=== PATIENT | male | born 1965 | race Caucasian/White ===

== ENCOUNTER → 2016-05-04 | Outpatient (CLI) | payer OTHER ==
[~2016-05-04] MED LIST: VENTOLIN H0.09 MG/AC IH; VIBRAMYCIN100 MG PO
[2016-05-04 14:58] LABS: HEMATOCRIT 40.8 % (42.0-52.0); HEMOGLOBIN 13.4 g/dl (14.0-18.0); MEAN CELL VOLUME 93.2 fl (80.0-94.0); MEAN CORPUSCULAR HGB 30.6 pg (27.0-31.0); MEAN CORPUSCULAR HGB CONC 32.8 g/dl (33.0-37.0); MEAN PLATELET VOLUME 9.1 fl (9.6-12.3); PLATELET COUNT AUTOMATED 205 10*3/uL (130-400); RED BLOOD COUNT 4.38 10*6/uL (4.50-5.90); RED CELL DISTRI WIDTH 13.2 % (0-14.5); WHITE BLOOD COUNT 5.1 10*3/uL (4.8-10.8)
[2016-05-04 15:26] LABS: IRON 75 ug/dL (65-175); IRON SATURATION 26 %; UIBC 209 ug/dL (110-410)
[2016-05-04 15:43] LABS: BASOPHIL # 0.1 10*3/uL (0-0.1); BASOPHILS 1 % (0-1); EOSINOPHIL # 0.2 10*3/uL (0-0.4); EOSINOPHILS 4 % (1-4); LYMPHOCYTE # 1.4 10*3/uL (1.3-4.4); MONOCYTE # 0.2 10*3/uL (0.1-1.0); NEUTROPHIL # 3.3 10*3/uL (2.3-7.9); NEUTROPHILS 64 % (47-73); PLATELET SUFFICIENCY NORMAL (NORMAL); TOTAL CELLS COUNTED 100 #CELLS
== END | disposition home or self-care (01) ==
LOC: LAB 14:37
PROVIDERS: Family Medicine
DX: D64.9 Anemia, unspecified (principal)

== ENCOUNTER → 2016-06-07 | Day surgery (SDC) | payer OTHER ==
[~2016-06-07] VITALS: Ht 175.2 cm; Wt 76.7 kg
[~2016-06-07] MED LIST changes: +ALL DAY ALLERGY10 MG PO; +ALPHA LIPOIC A300 MG PO; +AMITRIPTYLINE50 MG PO; +LAMOTRIGINE150 MG PO; +LEVETIRACETAM500 MG PO; +NEXIUM40 MG PO; +PAROXETINE HCL40 MG PO; +PAXIL20 M1 PO; +VITAMIN B121000 MC1 PO
--- NOTE | ~2016-06-07 | PROC NOTE ---
[place], [place] PROCEDURE NOTE NAME: DAREK JACQUES UNIT #: [id number] ROOM: DOCTOR: ALEX WALLACE MD BIRTHDATE: [birth year] DOS: 06/07/2016 PREOPERATIVE DIAGNOSES: History of gastroesophageal reflux disease, screening examination. POSTOPERATIVE DIAGNOSES: Gastritis, gastroesophageal reflux disease, normal colon. PROCEDURE: Esophagogastroduodenoscopy with screening colonoscopy. ENDOSCOPIST: Alex Wallace MD. INTERNET WEBMASTER: PGY1. ANESTHESIA: MAC. INDICATIONS: This is a 50-year-old gentleman who is here for a screening colonoscopy. He also has a history of gastritis and GERD, for which he desires an esophagogastroduodenoscopy, but decided to proceed with these procedures. The procedures and its complications were explained to the patient in detail preoperatively. Complications that were discussed included but were not limited to bleeding, missed lesions, colon and gastric perforation. He agreed to proceed. DESCRIPTION OF PROCEDURE: After identifying the patient, the patient was brought to the endoscopy suite and placed in the left lateral position. It was decided to proceed with the EGD first. Bite block was placed and sedation was administered by the Anesthesia team. An adult gastroscope was now lubricated and inserted into the mouth and advanced into the pharynx, esophagus, stomach, and the first 2 parts of the duodenum. There was found to be mild gastritis, but no active bleeding or ulceration. These findings were confirmed on retroflexion of the scope as well in the stomach. The duodenum was normal. On withdrawal, the esophagus was visualized and there was found to be a small hiatal hernia without any bleeding or ulceration and any inflammation. The scope was withdrawn. At this point, a colonoscopy was performed. A digital rectal exam was performed for this, which was within normal limits. An adult colonoscope was now introduced into the anal canal and advanced sequentially into the rectum, sigmoid colon, descending colon, transverse colon, and ascending colon up to the cecum. The prep was found to be suboptimal in certain areas and the liquid stool that was present was sucked away without any difficulty. Upon reaching the cecum, the scope was withdrawn. Total withdrawal time was approximately 6-1/2 minutes. There were no obvious lesions seen. The scope was then retroflexed and the retroflexion in the rectal area and was found open and the patient was found to have internal hemorrhoids without any active bleeding or ulceration. The scope was then withdrawn and the patient was taken to the recovery room in stable fashion. Based on these findings, the patient is recommended to have another colonoscopy in 10 years. Prior to that, if he has any symptoms suggesting of any bowel related problems, these findings will be discussed with the patient in the postoperative period when he comes and sees me in the office in 2 weeks. [place], [place] PROCEDURE NOTE NAME: DAREK JACQUES UNIT #: [id number] ROOM: DOCTOR: ALEX WALLACE MD BIRTHDATE: [birth year] Alex Wallace MD CM:PROCNOTE:PROCEDURE NOTE [id number] ALEX WALLACE MD
[2016-06-07 08:05] VITALS: BP 133/91
[2016-06-07 09:04] VITALS: BP 128/64
[2016-06-07 09:20] VITALS: BP 133/65
[2016-06-07 09:35] VITALS: BP 133/82
== END | disposition home or self-care (01) ==
LOC: SDC 06-04 11:00
DX: Z12.11 Encounter for screening for malignant neoplasm of colon (principal); K64.8 Other hemorrhoids; K29.70 Gastritis, unspecified, without bleeding; K44.9 Diaphragmatic hernia without obstruction or gangrene; K21.9 Gastro-esophageal reflux disease without esophagitis; G40.909 Epilepsy, unspecified, not intractable, without status epilepticus; J45.909 Unspecified asthma, uncomplicated; F41.9 Anxiety disorder, unspecified; F32.9 Major depressive disorder, single episode, unspecified; Z84.89 Family history of other specified conditions; Z83.3 Family history of diabetes mellitus
CPT/HCPCS: 00740; 00810; 43235; G0121

== ENCOUNTER → 2017-02-28 | Outpatient (CLI) | payer OTHER | LOC: US 09:30 | DX: R19.7 Diarrhea, unspecified (principal); K59.00 Constipation, unspecified ==

== ENCOUNTER 2021-01-08 19:57 | Emergency (ER) | payer OTHER ==
[~2021-01-08] VITALS: Wt 72.6 kg
[~2021-01-08 19:57] MED LIST changes: +DOXYCYCLINE100 M3 PO
[2021-01-08] MEDS ORDERED: AUGMENTIN 875875 MG PO (20:15)
== END 2021-01-08 20:25 | disposition home or self-care (01) ==
LOC: ED 19:57
DX: S81.852A Open bite, left lower leg, initial encounter (principal); S81.851A Open bite, right lower leg, initial encounter; S41.152A Open bite of left upper arm, initial encounter; Z79.899 Other long term (current) drug therapy; Z91.010 Allergy to peanuts; Z88.2 Allergy status to sulfonamides; W55.01XA Bitten by cat, initial encounter; Y93.89 Activity, other specified; Y92.89 Other specified places as the place of occurrence of the external cause; Y99.8 Other external cause status

== ENCOUNTER → 2021-01-10 | Outpatient (CLI) | payer OTHER ==
[~2021-01-10] MED LIST changes: +AUGMENTIN 875875 MG PO
== END ==
LOC: WOUNDCARE 02:54
PROVIDERS: ATTEND Nurse Practitioner Family
DX: S81.852A Open bite, left lower leg, initial encounter (principal); S81.851A Open bite, right lower leg, initial encounter; S61.452A Open bite of left hand, initial encounter; S61.552A Open bite of left wrist, initial encounter; Z79.899 Other long term (current) drug therapy; W55.01XA Bitten by cat, initial encounter; Z98.890 Other specified postprocedural states

== ENCOUNTER → 2021-01-18 | Outpatient (CLI) | payer OTHER | LOC: WOUNDCARE 02:24 | PROVIDERS: ATTEND Nurse Practitioner Family | DX: S81.852D Open bite, left lower leg, subsequent encounter (principal); S81.851D Open bite, right lower leg, subsequent encounter; S61.452D Open bite of left hand, subsequent encounter; S61.552D Open bite of left wrist, subsequent encounter; Z79.899 Other long term (current) drug therapy; W55.01XD Bitten by cat, subsequent encounter; Z98.890 Other specified postprocedural states ==

== ENCOUNTER 2021-12-31 23:33 | Emergency (ER) | payer OTHER ==
[~2021-12-31] VITALS: Wt 77.1 kg
[2022-01-01 01:13] LABS: BILIRUBIN Negative (Negative); BLOOD Negative (Negative); CLARITY Clear (Clear); COLOR Yellow (Yellow); GLUCOSE Negative (Negative); KETONE Negative (Negative); LEUKO ESTERASE Negative (Negative); NITRITE Negative (Negative); UROBILINOGEN 0.2 E.U./dl (0.0-1.0)
[2022-01-01 01:40] LABS: RBC 0-2 rbc/hpf (0-2); WBC 0-2 wbc/hpf (0-5)
[2022-01-01] MEDS ORDERED: NAPROXEN250 MG PO (01:47)
[2022-01-01] MEDS ORDERED: METHOCARBAMOL500 M1 PO (01:47)
== END 2022-01-01 01:59 | disposition home or self-care (01) ==
LOC: ED 23:33
PROVIDERS: Internal Medicine
DX: S39.011A Strain of muscle, fascia and tendon of abdomen, initial encounter (principal); Z91.010 Allergy to peanuts; Z88.2 Allergy status to sulfonamides; Z79.899 Other long term (current) drug therapy; X50.0XXA Overexertion from strenuous movement or load, initial encounter; Y93.89 Activity, other specified; Y92.89 Other specified places as the place of occurrence of the external cause; Y99.8 Other external cause status

== ENCOUNTER 2022-01-07 17:47 | Emergency (ER) | payer OTHER ==
[~2022-01-07] VITALS: Ht 172.7 cm; Wt 68.0 kg
[~2022-01-07 17:47] MED LIST changes: +METHOCARBAMOL500 M1 PO; +NAPROXEN250 MG PO
[2022-01-07] MEDS ORDERED: CYCLOBENZAPRINE10 MG PO (18:45)
[2022-01-07] MEDS ORDERED: PREDNISONE50 MG PO (18:45)
[2022-01-07] MEDS ORDERED: MELOXICAM7.5 MG PO (18:46)
== END 2022-01-07 19:09 | disposition home or self-care (01) ==
LOC: ED 17:47
DX: S39.012A Strain of muscle, fascia and tendon of lower back, initial encounter (principal); Z91.010 Allergy to peanuts; Z91.018 Allergy to other foods; Z88.2 Allergy status to sulfonamides; Z79.899 Other long term (current) drug therapy; X58.XXXA Exposure to other specified factors, initial encounter; Y93.89 Activity, other specified; Y92.89 Other specified places as the place of occurrence of the external cause; Y99.8 Other external cause status

== ENCOUNTER 2022-01-24 18:05 | Emergency (ER) | payer OTHER ==
[~2022-01-24] VITALS: Wt 69.9 kg
[~2022-01-24 18:05] MED LIST changes: +CYCLOBENZAPRINE10 MG PO; +MELOXICAM7.5 MG PO; +PREDNISONE50 MG PO
[2022-01-24] MEDS ORDERED: AMOX-CLAV 875-1 EACH PO (20:00)
== END 2022-01-24 20:36 | disposition home or self-care (01) ==
LOC: ED 18:05
DX: S50.812A Abrasion of left forearm, initial encounter (principal); Z79.899 Other long term (current) drug therapy; Z88.2 Allergy status to sulfonamides; W55.03XA Scratched by cat, initial encounter; Y93.89 Activity, other specified; Y92.89 Other specified places as the place of occurrence of the external cause; Y99.9 Unspecified external cause status

== ENCOUNTER 2022-01-26 11:45 | Emergency (ER) | payer OTHER ==
[~2022-01-26 11:45] MED LIST changes: +AMOX-CLAV 875-1 EACH PO
== END 2022-01-26 12:25 | disposition home or self-care (01) ==
LOC: ED 11:45
DX: Z23 Encounter for immunization (principal); Z91.010 Allergy to peanuts; Z88.2 Allergy status to sulfonamides; Z91.018 Allergy to other foods; Z79.899 Other long term (current) drug therapy

== ENCOUNTER 2022-01-31 16:52 | Emergency (ER) | payer OTHER ==
[~2022-01-31] VITALS: Wt 69.9 kg
== END 2022-01-31 21:52 | disposition home or self-care (01) ==
LOC: ED 16:52
DX: Z23 Encounter for immunization (principal); Z91.010 Allergy to peanuts; Z88.2 Allergy status to sulfonamides; Z79.899 Other long term (current) drug therapy

== ENCOUNTER 2022-02-07 15:13 | Emergency (ER) | payer OTHER ==
[~2022-02-07] VITALS: Ht 175.2 cm; Wt 69.9 kg
== END 2022-02-07 18:55 | disposition home or self-care (01) ==
LOC: ED 15:13
DX: Z23 Encounter for immunization (principal); Z88.2 Allergy status to sulfonamides; Z91.010 Allergy to peanuts; Z91.018 Allergy to other foods; Z79.899 Other long term (current) drug therapy

== ENCOUNTER 2023-02-23 12:54 | Emergency (ER) | payer MEDICARE, OTHER ==
[~2023-02-23] VITALS: Ht 175.2 cm; Wt 70.3 kg
[2023-02-23] MEDS ORDERED: PAXIL40 M1 PO (13:04)
[2023-02-23] MEDS ORDERED: CYCLOBENZAPRINE10 MG PO (14:35)
[2023-02-23] MEDS ORDERED: MELOXICAM15 MG PO (14:35)
[2023-02-23] MEDS ORDERED: COLACE 2-IN-11 EACH PO (14:35)
== END 2023-02-23 15:47 | disposition home or self-care (01) ==
LOC: ED 12:54
DX: M54.41 Lumbago with sciatica, right side (principal); M79.604 Pain in right leg; K21.9 Gastro-esophageal reflux disease without esophagitis; F32.A Depression, unspecified; F41.9 Anxiety disorder, unspecified; J45.909 Unspecified asthma, uncomplicated; Z88.2 Allergy status to sulfonamides; Z91.018 Allergy to other foods; Z91.010 Allergy to peanuts; Z98.890 Other specified postprocedural states

== ENCOUNTER 2023-02-26 19:30 | Emergency (ER) | payer MEDICARE, OTHER ==
[~2023-02-26] VITALS: Ht 172.7 cm; Wt 70.3 kg
[~2023-02-26 19:30] MED LIST changes: +COLACE 2-IN-11 EACH PO; +MELOXICAM15 MG PO; +PAXIL40 M1 PO
[2023-02-26 20:46] LABS: BASO % 0.5 % (0.0-1.0); EOS # 0.3 10*3/uL (0.0-0.4); EOS % 4.8 % (1.0-4.0); HEMATOCRIT 39.4 % (42.0-52.0); LYMPH # 2.1 10*3/uL (1.3-4.4); LYMPH % 37.9 % (27.0-41.0); MEAN CELL VOLUME 93.8 fl (80.0-94.0); MEAN CORPUSCULAR HGB 30.7 pg (27.0-31.0); MEAN CORPUSCULAR HGB CONC 32.7 g/dl (33.0-37.0); MEAN PLATELET VOLUME 8.8 fl (9.6-12.3); MONO # 0.5 10*3/uL (0.1-1.0); MONO % 9.3 % (3.0-9.0); NEUT # 2.7 10*3/uL (2.3-7.9); NEUT % 47.3 % (47.0-73.0); PLATELET COUNT AUTOMATED 219 10*3/uL (130-400); RED CELL DISTRI WIDTH 12.7 % (0-14.5); WHITE BLOOD COUNT 5.6 10*3/uL (4.8-10.8)
[2023-02-26 21:07] LABS: ALKALINE PHOSPHATASE 71 U/L (46-116); BUN 14 mg/dl (9-23); CHLORIDE 105 mmol/L (98-107); LIPASE 39 U/L (12-53); POTASSIUM 3.7 mmol/L (3.4-5.1); SGPT/ALT 10 U/L (5-49); TOTAL PROTEIN 7.1 gm/dL (6.0-8.0)
[2023-02-26 21:17] LABS: BILIRUBIN Negative (Negative); BLOOD Negative (Negative); CLARITY Clear (Clear); COLOR Yellow (Yellow); GLUCOSE Negative (Negative); KETONE Trace (Negative); LEUKO ESTERASE Trace (Negative); NITRITE Negative (Negative); PH 6.5 (4.5-8.0); SPECIFIC GRAVITY 1.025 (1.001-1.030)
[2023-02-26 21:31] LABS: BACTERIA 1+; MUCOUS 3+
[2023-02-26] MEDS ORDERED: MIRALAX17 GM PO (23:02)
[2023-02-26] MEDS ORDERED: OMNICEF300 MG PO (23:04)
== END 2023-02-27 00:10 | disposition home or self-care (01) ==
LOC: ED 19:30
PROVIDERS: Family Medicine
DX: K59.00 Constipation, unspecified (principal); N39.0 Urinary tract infection, site not specified; K21.9 Gastro-esophageal reflux disease without esophagitis; F32.A Depression, unspecified; F41.9 Anxiety disorder, unspecified; J45.909 Unspecified asthma, uncomplicated; Z91.010 Allergy to peanuts; Z91.018 Allergy to other foods; Z88.2 Allergy status to sulfonamides; Z98.890 Other specified postprocedural states; F17.210 Nicotine dependence, cigarettes, uncomplicated

== ENCOUNTER → 2023-05-02 | Outpatient (CLI) | payer MEDICARE, OTHER ==
[~2023-05-02] MED LIST changes: +MIRALAX17 GM PO; +OMNICEF300 MG PO
[2023-05-02 14:26] LABS: BASO % 0.6 % (0.0-1.0); EOS # 0.2 10*3/uL (0.0-0.4); EOS % 4.8 % (1.0-4.0); HEMATOCRIT 39.3 % (42.0-52.0); LYMPH # 1.5 10*3/uL (1.3-4.4); LYMPH % 30.3 % (27.0-41.0); MEAN CELL VOLUME 95.4 fl (80.0-94.0); MEAN CORPUSCULAR HGB 30.8 pg (27.0-31.0); MEAN CORPUSCULAR HGB CONC 32.3 g/dl (33.0-37.0); MONO # 0.4 10*3/uL (0.1-1.0); MONO % 8.6 % (3.0-9.0); NEUT # 2.8 10*3/uL (2.3-7.9); NEUT % 55.5 % (47.0-73.0); PLATELET COUNT AUTOMATED 194 10*3/uL (130-400); RED BLOOD COUNT 4.12 10*6/uL (4.50-5.90); RED CELL DISTRI WIDTH 13.2 % (0-14.5)
== END | disposition home or self-care (01) ==
LOC: LAB 13:57
PROVIDERS: ATTEND Family Medicine
DX: D64.9 Anemia, unspecified (principal); Z77.011 Contact with and (suspected) exposure to lead; Z79.899 Other long term (current) drug therapy